=== PATIENT | male | born 1945 | race Caucasian/White ===

== ENCOUNTER 2016-07-13 14:45 | Outpatient (CLI) | payer MEDICARE, OTHER ==
[~2016-07-13 14:45] MED LIST: ALLOPURINOL100 MG PO; HYDROCHLOROTH12.5 M2 PO; HYDROCODONE BI473 ML PO; LISINOPRIL20 MG PO; OMEPRAZOLE20 MG PO; WARFARIN SOD5 M1 PO
== END 2016-07-13 15:33 ==
LOC: ACC 14:45
DX: Z95.2 Presence of prosthetic heart valve (principal); Z79.01 Long term (current) use of anticoagulants; Z51.81 Encounter for therapeutic drug level monitoring
CPT/HCPCS: G0463

== ENCOUNTER → 2016-08-24 | Outpatient (CLI) | payer MEDICARE, OTHER | LOC: ACC 09:10 | DX: Z95.2 Presence of prosthetic heart valve (principal); Z79.01 Long term (current) use of anticoagulants; Z51.81 Encounter for therapeutic drug level monitoring ==

== ENCOUNTER → 2016-10-17 | Outpatient (CLI) | payer MEDICARE, OTHER ==
[2016-10-17 14:17] LABS: HEMOGLOBIN 11.5 g/dL (14.1-18.0); LYMPH # 1.9 K/mm3 (0.7-4.5); LYMPH % 27.8 % (10-50)
[2016-10-17 14:52] LABS: BUN 28 mg/dL (7-18)
[2016-10-17 14:55] LABS: GFR (ESTIMATED) 46 ML/MIN (>60)
== END ==
LOC: LAB 14:04
PROVIDERS: Internal Medicine Adolescent Medicine
DX: I25.10 Atherosclerotic heart disease of native coronary artery without angina pectoris (principal); I35.9 Nonrheumatic aortic valve disorder, unspecified

== ENCOUNTER 2017-03-22 07:15 | Day surgery (SDC) | payer MEDICARE, OTHER ==
[~2017-03-22] VITALS: Ht 167.6 cm; Wt 86.2 kg
[~2017-03-22 07:15] MED LIST changes: +COLCRYS0.6 M1
--- NOTE | 2017-03-22 08:53 | Operative Note ---
Upper GI Endoscopy Procedure date: 03/22/17 Date of : 49 Procedure:Upper GI Endoscopy Esophagogastroduodenoscopy with cold biopsies Indications: Mr. Mancini is a 71-year-old gentleman with dyspepsia. He reports epigastric and mid retrosternal burning discomfort with bloating, fullness, nausea and early satiety. He has some difficulty with burping/belching. He does have some dysphagia and globus sensation. He did have a prior coronary artery bypass graft nuclear cardiac stress testing which was negative. He also had an unremarkable echocardiogram. It was felt that he had noncardiac chest pain and dyspepsia. He often feels that it is difficult to get a good deep breath. He has had some lightheadedness and dizziness. He reports no significant heartburn or reflux. He has abdominal tenderness. He reports incomplete bowel evacuation and does take hydrocodone regularly daily. He reports some longer periods of time on the commode and excessive wiping. He had a colonoscopy in 2010 which was essentially normal. The patient presented with moderate anemia with hemoglobin and hematocrit of 6.3 and 17.7 with a low MCV. He is on Coumadin. He was previously on indomethacin. He had a significant bleeding ulcer requiring more than a weeks ' stay in the intensive care unit several years ago. Performing Provider: Rashad Corral MD Referring Provider: Harish Maciel M.D. Sedation: MAC sedation Procedure: Prior to the procedure, a history and physical exam was performed, and patients medications and allergies were reviewed. The risks and benefits of the procedure and the sedation options and risks were discussed with the patient. All questions were answered and informed consent was obtained. The patient was brought to the procedure room. Patient identification and proposed procedure were verified by the physician and the nurse. The patient was placed in a left lateral decubitus position and the scope was passed under direct vision. Throughout the procedure, the patient's blood pressure, pulse, and oxygen saturations were monitored continuously. The endoscope was introduced through the mouth, and advanced to the second part of duodenum. The upper GI endoscopy was accomplished without difficulty. The patient tolerated the procedure well. Findings: The scope was passed directly into the upper esophagus and advanced to the third portion of the duodenum. The post bulbar duodenum and duodenal bulb were normal with normal mucosa and conniventes. Cold biopsies were obtained from the duodenum to rule out celiac disease. The scope was withdrawn through a normal duodenal bulb and pylorus into the stomach. There was linear erythema of the antrum consistent with linear reactive antritis. There was loss of rugal folds and visible vasculature in the mucosa of the body and fundus characteristic of chronic atrophic gastritis. Cold biopsies were taken from the fundus. Upon retroflexion there was no hiatal hernia. The scope was then withdrawn into the esophagus. There was no evidence of reflux esophagitis or Brooks's. There was no Schatzki's ring. There were tertiary contractions and mild esophageal dysmotility. The remainder of the esophageal mucosa was normal. Immediate complications: None EBL (ml): 0 Impression: 1. Nonerosive gastroesophageal reflux disease with mild esophageal dysmotility/ esophageal dyskinesia 2. Chronic atrophic gastritis 3. Mild linear reactive antritis Recommendations: I do feel that the patient most likely has poor iron absorption from the chronic atrophic gastritis. I will follow up the biopsies. I would consider parenteral iron infusion. I am going to obtain Hemoccult testing. Certainly if he is Hemoccult-positive, I would strongly encourage/recommend colonoscopy for diagnostic purposes. The patient does have functional dyspepsia. We will discuss additional dietary measures and treatment options. at [id number]
[2017-03-22 10:42] VITALS: BP 174/87
[2017-03-25 14:36] LABS: Antiparietal Cell Antibody 44.3 Units (0.0-20.0)
== END 2017-03-22 10:25 | disposition home or self-care (01) ==
LOC: SDC 07:15
PROVIDERS: Internal Medicine Gastroenterology
PROC: 0DB78ZX Excision of Stomach, Pylorus, Via Natural or Artificial Opening Endoscopic, Diagnostic (ICD-10-PCS; 2017-03-22)
PROC: 0DB98ZX Excision of Duodenum, Via Natural or Artificial Opening Endoscopic, Diagnostic (ICD-10-PCS; principal; 2017-03-22 08:30)
DX: D50.9 Iron deficiency anemia, unspecified (principal); K29.40 Chronic atrophic gastritis without bleeding; K29.60 Other gastritis without bleeding; I25.10 Atherosclerotic heart disease of native coronary artery without angina pectoris; Z95.1 Presence of aortocoronary bypass graft; Z95.2 Presence of prosthetic heart valve; Z79.01 Long term (current) use of anticoagulants; K21.9 Gastro-esophageal reflux disease without esophagitis; R68.81 Early satiety; K22.4 Dyskinesia of esophagus

== ENCOUNTER → 2017-03-25 | Outpatient (CLI) | payer MEDICARE, OTHER ==
[2017-03-25 13:53] LABS: STOOL OCCULT BLOOD NEGATIVE (NEG)
[2017-03-25 13:54] LABS: STOOL OCCULT BLOOD NEGATIVE (NEG)
[2017-03-25 13:54] LABS: STOOL OCCULT BLOOD NEGATIVE (NEG)
== END ==
LOC: LAB 13:14
PROVIDERS: Internal Medicine Gastroenterology
DX: K30 Functional dyspepsia (principal); D50.9 Iron deficiency anemia, unspecified; K29.40 Chronic atrophic gastritis without bleeding; K29.60 Other gastritis without bleeding; I25.10 Atherosclerotic heart disease of native coronary artery without angina pectoris; Z95.1 Presence of aortocoronary bypass graft; Z95.2 Presence of prosthetic heart valve; Z79.01 Long term (current) use of anticoagulants; K21.9 Gastro-esophageal reflux disease without esophagitis; K22.4 Dyskinesia of esophagus; R68.81 Early satiety
CPT/HCPCS: G0328

== ENCOUNTER 2017-04-29 11:16 | Day surgery (SDC) | payer MEDICARE, OTHER ==
[~2017-04-29] VITALS: Ht 167.6 cm; Wt 83.9 kg
--- NOTE | 2017-04-29 14:14 | Operative Note ---
Colonoscopy ([facility]) Procedure date: 04/29/17 Date of : 49 Procedure:Colonoscopy Colonoscopy with cold snare polypectomy Indications: Mr. Mancini is a 71-year-old gentleman who is here for diagnostic colonoscopy secondary to iron deficiency anemia. The patient was on Coumadin and previously on indomethacin. The patient's EGD on March 22, 2017 showed some mild linear reactive antritis and chronic atrophic gastritis. Biopsies did show H. pylori and some intestinal metaplasia. The patient reports no rectal bleeding, abdominal pain or family history of colon cancer. He has had some intentional weight loss. He is on the fiber bowel regimen (MiraLAX plus Metamucil) and iron supplementation. His last colonoscopy in 2010 was normal. Performing Provider: Rashad Corral MD Referrring Provider: Harish Maciel M.D. Sedation: MAC sedation Procedure: Prior to the procedure, a history and physical exam was performed, and patient medications and allergies were reviewed. The risks and benefits of the procedure and the sedation options and risks were discussed with the patient. All questions were answered and informed consent was obtained. Patient identification and proposed procedure were verified by the physician and the nurse. The patient was placed in a left lateral decubitus position. Throughout the procedure, the patient's blood pressure, pulse, and oxygen saturations were monitored continuously. Findings: On digital rectal examination there was normal rectal tone. There were no external hemorrhoids. The colonoscope was introduced through the anal canal to the rectum and advanced to the cecum. The ileocecal valve and appendiceal orifice were identified. The scope was advanced a short distance into the ileum which appeared grossly normal. The scope was then withdrawn into the colon. There was a 10 mm polyp in the cecum, 5 mm polyp in the ascending and 2 polyps in the descending colon that were 5-6 mm. All 4 of these polyps were removed via cold snare polypectomy. There were scattered diverticuli throughout the descending and sigmoid colon (LEFT colon). The rectum itself was normal. Upon retroflexion within the rectum there were grade 1 internal hemorrhoids. Impressions: 1. Colonic polyps 4 2. Left-sided diverticulosis 3. Grade 1 internal hemorrhoids Recommendations: I will follow up the polyp histology and recommend repeat screening/surveillance colonoscopy again in 3 years based upon the size and number of the polyps and polyp histology. I do feel that the iron deficiency is likely related to the chronic atrophic gastritis and H. pylori. I will obtain Hemoccult testing. I would recommend ongoing use of the fiber bowel regimen on a long-term daily basis. Complications: None EBL (ml): 0 at [id number]
[2017-04-29 15:36] VITALS: BP 129/72
== END 2017-04-29 15:10 | disposition home or self-care (01) ==
LOC: SDC 11:16
PROVIDERS: Internal Medicine Gastroenterology
PROC: 0DBM8ZX Excision of Descending Colon, Via Natural or Artificial Opening Endoscopic, Diagnostic (ICD-10-PCS; 2017-04-29)
PROC: 0DBH8ZX Excision of Cecum, Via Natural or Artificial Opening Endoscopic, Diagnostic (ICD-10-PCS; 2017-04-29)
PROC: 0DBK8ZX Excision of Ascending Colon, Via Natural or Artificial Opening Endoscopic, Diagnostic (ICD-10-PCS; principal; 2017-04-29 12:30)
DX: D12.0 Benign neoplasm of cecum (principal); D12.4 Benign neoplasm of descending colon; K57.30 Diverticulosis of large intestine without perforation or abscess without bleeding; D50.9 Iron deficiency anemia, unspecified; K64.0 First degree hemorrhoids